=== PATIENT | male | born 2005 | race Caucasian/White ===

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

== ENCOUNTER 2023-05-30 18:15 | Emergency (ER) | payer MEDICAID ==
[~2023-05-30] VITALS: Ht 165.1 cm; Wt 81.6 kg
[~2023-05-30 18:15] MED LIST changes: +IBUP-1969 PO
[2023-05-30 18:21] VITALS: BP_SYST 126; PULSE 84; RESP 22; TEMP 98.3; O2SAT 95
[2023-05-30] MEDS ORDERED: ACET1TAB93 PO (19:21)
[2023-05-30 19:37] VITALS: BP_SYST 126; PULSE 84; RESP 22; TEMP 98.3; O2SAT 95
== END 2023-05-30 19:37 | disposition home or self-care (01) ==
LOC: SED 18:15
DX: S70.12XA Contusion of left thigh, initial encounter (principal); Z79.899 Other long term (current) drug therapy; V18.0XXA Pedal cycle driver injured in noncollision transport accident in nontraffic accident, initial encounter; Y93.89 Activity, other specified; Y92.89 Other specified places as the place of occurrence of the external cause; Y99.8 Other external cause status
CPT/HCPCS: 73552; 99283